=== PATIENT | male | born 1965 | race Caucasian/White ===

== ENCOUNTER 2017-03-06 12:13 | Emergency (ER) | payer OTHER | END 2017-03-06 14:38 | disposition home or self-care (01) | LOC: ER1 12:13 | DX: M54.2 Cervicalgia (principal); G89.29 Other chronic pain; I10 Essential (primary) hypertension; F17.210 Nicotine dependence, cigarettes, uncomplicated; Z98.890 Other specified postprocedural states; Z88.2 Allergy status to sulfonamides | CPT/HCPCS: 72125; 96372; 99283; J1100; J1885 ==